=== PATIENT | female | born 1970 | race African-American/Black ===

== ENCOUNTER → 2017-01-06 | Outpatient (CLI) | payer MEDICARE, OTHER ==
[~2017-01-06] MED LIST: CERTAGEN PO; DANTRIUM100 MG PO; DEPAKOTE ER PO; FLEXERIL PO; GLYNASE PO; KEPPRA750 MG PO; LEXAPRO PO; LIPITOR PO; NEURONTIN PO; PLAVIX PO; SYNTHROID PO; ZANTAC PO
--- NOTE | ~2017-01-06 | MY11 ---
[facility] A Service [facility] RADIOLOGY TEXT RESULTS PATIENT: ANA DAVIDSON LOCATION: [facility] : 72 UNIT #: [id number] AGE: [address]: MEGHAN RICHARDSON APRN SEX: F ORDER DR: [id number] [facility] [address] [place], [place] [address] [id number] O MR#: [id number] Acc #: [id number] NAME: ANA DAVIDSON : 1970 SEX: F STUDY DATE/TIME: 01/06/2017 9:55 UNIT: [facility] ROOM: STUDY DESCRIPTION: MY Mammogram Screening [facility] [place] Attending Physician: Meghan Richardson Aprn Ordering Physician: Meghan Richardson Aprn Primary Care Physician: Meghan Richardson Aprn MEDICAL IMAGING REPORT This report is preliminary unless electronic signature is present EXAM Digital screening mammogram, 01/06/2017. HISTORY 46-year-old woman in wheelchair with limited mobility. Strong family history, mother age 40. Annual screening. COMPARISON 05/27/2011, 03/27/2014. FINDINGS Digital imaging of each breast was completed, utilizing screening protocol. Optimal positioning is challenging. There is no identified breast mass. I see no suspicious microcalcifications and no focal architectural deformity. IMPRESSION Negative mammogram. Annual screening recommended. Patients over the age of 40 are entered into a reminder system with target due date for the next mammogram. A result letter will also be sent to the patient. BIRADS: 1 Negative Dictated by... Christian Viera M.D. THIS IS AN ELECTRONICALLY VERIFIED REPORT Christian Viera M.D. at 01/06/2017 12:57 PM [facility] A Service [facility] RADIOLOGY TEXT RESULTS PATIENT: ANA DAVIDSON LOCATION: [facility] : 72 UNIT #: [id number] AGE: [address]: MEGHAN RICHARDSON APRN SEX: F ORDER DR: Jennie TD: 01/06/2017 11:44 JOB #: [id number] MEDICAL IMAGING REPORT Page 1 of 1 COPY
== END | disposition home or self-care (01) ==
LOC: CWCC 09:25
DX: Z12.31 Encounter for screening mammogram for malignant neoplasm of breast (principal); Z80.3 Family history of malignant neoplasm of breast; I10 Essential (primary) hypertension; R26.0 Ataxic gait; E11.9 Type 2 diabetes mellitus without complications; Z79.84 Long term (current) use of oral hypoglycemic drugs; Z79.899 Other long term (current) drug therapy
CPT/HCPCS: G0202